=== PATIENT | female | born 1975 | race Caucasian/White ===

== ENCOUNTER 2017-08-03 08:28 | Outpatient (CLI) | payer BC | END 2017-08-03 08:29 | disposition home or self-care (01) | LOC: BICMAMMO 08:28 | PROVIDERS: ATTEND Obstetrics & Gynecology | DX: Z12.31 Encounter for screening mammogram for malignant neoplasm of breast (principal) | CPT/HCPCS: 77063; 77067 ==

== ENCOUNTER 2018-08-30 12:04 | Outpatient (CLI) | payer BC ==
--- NOTE | 2018-08-30 13:04 | MMO ---
Bilateral MAMMO Bilat Screen [id number]. CLINICAL HISTORY: Patient is 43 years old and is seen for screening. The patient has no family history of breast cancer. The patient has no personal history of cancer. VIEWS: The views performed were: bilateral craniocaudal with tomosynthesis and bilateral mediolateral oblique with tomosynthesis. FILMS COMPARED: The present examination has been compared to prior imaging studies performed at [facility] on 05/10/2015 and 08/03/2017. MAMMOGRAM FINDINGS: There are scattered fibroglandular densities. There are no suspicious masses, suspicious calcifications, or new areas of architectural distortion. IMPRESSION: THERE IS NO MAMMOGRAPHIC EVIDENCE OF MALIGNANCY. A ROUTINE FOLLOW-UP MAMMOGRAM IN 1 YEAR IS RECOMMENDED. THE RESULTS OF THIS EXAM WERE SENT TO THE PATIENT. ACR BI-RADS Category 1 - Negative MAMMOGRAPHY NOTE: 1. A negative mammogram report should not delay a biopsy if a dominant of clinically suspicious mass is present. 2. Approximately 10% to 15% of breast cancers are not detected by mammography. 3. Adenosis and dense breasts may obscure an underlying neoplasm.
== END 2018-08-30 12:05 | disposition home or self-care (01) ==
LOC: BICMAMMO 12:04
PROVIDERS: ATTEND Obstetrics & Gynecology
DX: Z12.31 Encounter for screening mammogram for malignant neoplasm of breast (principal)
CPT/HCPCS: 77063; 77067

== ENCOUNTER 2019-09-24 08:25 | Outpatient (CLI) | payer BC ==
--- NOTE | 2019-09-24 09:05 | ULT ---
EXAM: US Breast Limited Rt PROVIDED CLINICAL HISTORY: Abnormal screening mammogram COMPARISON: Screening mammogram 09/22/2019 FINDINGS: Limited sonographic interrogation was performed at the 6:00 location of the right breast. There is a round 3 to 4 mm heterogeneously hypoechoic nodule at the 6:00 location of the right breast, demonstrating enhanced through transmission and circumscribed smooth margins. This corresponds in si ze and position with the mammographic abnormality. A small intramammary lymph node is also seen at the 6:00 position. Review of the screening mammogram demonstrates findings compatible with intramamma ry lymph node involving the 12:00 nodule. IMPRESSION: 3-4 mm probable complex cyst 6:00 position right breast, corresponding to mammogram finding. Six-katya h follow-up right breast ultrasound recommended. BI-RADS 3 -- probably benign, 6-month follow-up
--- NOTE | 2019-09-24 09:06 | ULT ---
EXAM: US Breast Limited Lt PROVIDED CLINICAL HISTORY: Abnormal mammogram COMPARISON: Screening mammogram 09/22/2019 FINDINGS: Limited sonographic interrogation of the left breast in the upper inner quadrant was performed. The d eeper of the 2 described nodules demonstrates a sonographic correlate at the 10:00 position, demonstrating features typical for intramammary lymph node. No sonographic correlate for the more ant erior of the 2 described nodules is evident; however, mammographic features are compatible with intramammary lymph node. IMPRESSION: Intramammary lymph nodes are demonstrated in the left breast. BI-RADS 2 -- benign findings
== END 2019-09-24 08:26 | disposition home or self-care (01) ==
LOC: BICMAMMO 08:25
PROVIDERS: ATTEND Obstetrics & Gynecology
DX: R92.2 Inconclusive mammogram (principal); N60.01 Solitary cyst of right breast

== ENCOUNTER 2020-02-25 12:01 | Outpatient (CLI) | payer BC ==
--- NOTE | 2020-02-25 13:03 | ULT ---
EXAM: US Breast Limited Rt PROVIDED CLINICAL HISTORY: 6 month follow-up COMPARISON: 09/24/2019 FINDINGS: Limited sonographic interrogation was performed of the right breast in the region of prior mammograph ic and sonographic concern. There is a stable 3 mm round hypoechoic nodule in this location. IMPRESSION: Stable exam. Follow-up in 6 months is recommended, at which time the patient will be due for bilatera l diagnostic mammography. BI-RADS 3 -- probably benign, 6-month follow-up
== END 2020-02-25 12:02 | disposition home or self-care (01) ==
LOC: BICULT 12:01
PROVIDERS: ATTEND Obstetrics & Gynecology
DX: R92.8 Other abnormal and inconclusive findings on diagnostic imaging of breast (principal)

== ENCOUNTER 2020-08-25 09:34 | Outpatient (CLI) | payer BC | END 2020-08-25 09:35 | disposition home or self-care (01) | LOC: BICMAMMO 09:34 | PROVIDERS: ATTEND Obstetrics & Gynecology | DX: R92.8 Other abnormal and inconclusive findings on diagnostic imaging of breast (principal); N63.10 Unspecified lump in the right breast, unspecified quadrant | CPT/HCPCS: 77066; G0279 ==

== ENCOUNTER 2021-09-06 13:02 | Outpatient (CLI) | payer BC | END 2021-09-06 13:03 | disposition home or self-care (01) | LOC: BICMAMMO 13:02 | PROVIDERS: ATTEND Obstetrics & Gynecology | DX: N60.01 Solitary cyst of right breast (principal) | CPT/HCPCS: 77066; G0279 ==